=== PATIENT | female | born 1980 | race Caucasian/White ===

== ENCOUNTER 2016-11-29 02:30 | Emergency (ER) | payer OTHER ==
[2016-11-29] MEDS ORDERED: diphenhydrAMINE INJ 50MG/ML VIAL (J1200) As Ordered ONE ×2 (03:30→04:33)
[2016-11-29] MEDS ORDERED: METOCLOPRAMIDE INJ 10MG/2ML VIAL (J2765) As Ordered ONE ×2 (03:30→04:33)
[2016-11-29] MEDS ORDERED: methylPREDNISolone INJ 125 MG/2 ML VIAL (J2930) As Ordered ONE ×2 (03:31→03:38)
[2016-11-29] MEDS ORDERED: KETOROLAC 30 MG/ML VIAL (J1885) As Ordered ONE (03:31)
--- NOTE | 2016-11-29 06:34 | EDDOCDS ---
Physician Documentation [facility] Name: Alisha Bhatt Age: 35 yrs Sex: Female : 1980 Arrival Date: 11/29/2016 Time: 02:30 Bed 15 Private MD: Disposition: 11/29/16 06:08 Discharged to Home/Self Care. Impression: Migraine without aura, not intractable. - Condition is Stable. - Discharge Instructions: Migraine Headache. - Medication Reconciliation, Local Pharmacy Hours, Work Release Form - 2 day form. - Follow up: Private Physician; When: As needed; Reason: Continuance of care. - Problem is an acute exacerbation. - Symptoms have improved. Historical: - Allergies: Aspirin (Hives); - Home Meds: 1. Butalbital Compound 50-325-40 mg Oral cap 1 cap (Last dose: 11/28/2016 22:00) 2. mirena - PMHx: Migraine Headaches; - PSHx: right arm surgery; ; - Social history: Smoking status: Patient states was never smoker of tobacco. No barriers to communication noted, The patient speaks fluent Mosoth[place], Speaks appropriately for age. - Family history: Not pertinent. - : The pt / caregiver states he / she is not on anticoagulants. Home medication list is obtained from the patient, [employer] import data. - Exposure Risk Screening:: None identified. 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 6 in. (167.64 cm); Pain 10/10; 04:52 BP 108 / 63 LA Supine (auto/reg); Pulse 77 MON; Resp 18 S; Temp 98.6(TE); Pulse Ox 99% cln on R/A; Pain 5/10; 06:18 BP 104 / 64 LA Supine (auto/reg); Pulse 76 MON; Resp 18 S; Temp 98.9(TE); Pulse Ox 96% cln on R/A; Pain 4/10; 02:52 Body Mass Index 28.25 (79.38 kg, 167.64 cm) [facility] [place]: 03:24 IV Saline Lock ordered. mm11 03:24 ketorolac 30 mg IVP once ordered. mm11 03:24 Metoclopramide 10 mg IV at 40 mg/hr once over 15 mins ordered. mm11 03:24 diphenhydrAMINE 25 mg IVP once ordered. mm11 03:24 Solu-MEDROL 125 mg IVP once ordered. mm11 03:24 NS 0.9% 1000 ml IV at bolus once ordered. mm11 03:[address] [facility] 04:00 [facility] Payment Agreement was scanned into [employer] and attached to record. [facility] 04:30 Metoclopramide 10 mg IV at 40 mg/hr once over 15 mins ordered. [facility] 04:30 diphenhydrAMINE 25 mg IVP once ordered. mm11 Administered Medications: 03:42 Drug: Solu-MEDROL 125 mg [Solu-Medrol 500 mg intravenous solution (125 mg)] Route: IVP; mgs Site: right antecubital; 03:45 Drug: diphenhydrAMINE 25 mg [diphenhydramine 50 mg/mL injection solution (0.5 mL)] mgs Route: IVP; Site: right antecubital; 03:50 Drug: ketorolac 30 mg [ketorolac 30 mg/mL (1 mL) injection solution (1 mL)] Route: IVP; mgs Site: right antecubital; 03:52 Drug: NS 0.9% 1000 ml [sodium chloride 0.9 % intravenous solution] Route: IV; Rate: mgs bolus; Site: right antecubital; 03:53 Drug: Metoclopramide 10 mg [metoclopramide 5 mg/mL injection solution] Route: IV; Rate: mgs 40 mg/hr; Infused Over: 15 mins; Site: right antecubital; 04:37 Drug: diphenhydrAMINE 25 mg [diphenhydramine 50 mg/mL injection solution (0.5 mL)] mgs Route: IVP; Site: right antecubital; 04:42 Drug: Metoclopramide 10 mg [metoclopramide 5 mg/mL injection solution] Route: IV; Rate: mgs 40 mg/hr; Infused Over: 15 mins; Site: right antecubital; Signatures: Brittany Monroy RN RN km Tony Martin, DO DO mm11 Mandi Ma [facility] Tony Montano,RN RN mgs The chart was reviewed and I authenticate all verbal orders and agree with the evaluation and treatment provided.Attachments: 04:00 [facility] Payment Agreement law MTDD
--- NOTE | 2016-11-29 06:34 | EDDOCDS ---
Nurse's Notes [facility] Name: Alisha Bhatt Age: 35 yrs Sex: Female : 1980 Arrival Date: 11/29/2016 Time: 02:30 Bed 15 Private MD: Diagnosis: Migraine without aura, not intractable Presentation: 11/29 02:49 Presenting complaint: Patient states: Migraine headache started yesterday morning. Was kmg1 relieved by meds but returned last evening and is not responding to treatment. Patient is actively vomiting. Suicide/Homicide risk assessment- the patient denies having any suicidal and/or homicidal ideations and does not present with any other emotional, behavioral or mental health complaints. 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 Transition of care: patient was not received from another setting of care. 02:49 Acuity: HILLARY Level 3 kmg1 02:49 Method Of Arrival: Walkin/Carried/Asstd kmg1 Triage Assessment: 02:52 General: Appears ill, uncomfortable, Behavior is appropriate for age, cooperative. kmg1 Pain: Location: right eye, left eye, right jewish and left jewish Pain currently is 10 out of 10 on a pain scale. Quality of pain is described as sharp, stabbing, throbbing, Also complains of nausea. HIV screening NA for this visit Offered previously. Neurological: Level of Consciousness is awake, alert, Reports dizziness, headache photophobia. GI: Pt is actively vomiting clear fluid, Reports nausea, vomiting. 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 Butalbital Compound 50-325-40 mg Oral cap 1 cap (Last dose: 11/28/2016 22:00) 2. mirena - PMHx: Migraine Headaches; - PSHx: right arm surgery; ; - Social history: Smoking status: Patient states was never smoker of tobacco. No barriers to communication noted, The patient speaks fluent [place], Speaks appropriately for age. - Family history: Not pertinent. - : The pt / caregiver states he / she is not on anticoagulants. Home medication list is obtained from the patient, [employer] import data. - Exposure Risk Screening:: None identified. Screenin:00 Screening information is obtained from the patient. Fall risk: No risks identified. mgs Assistance ADL's: requires no assistance with activities of daily living. Abuse/DV Screen: The patient / caregiver reports he/she is: not in a situation that causes fear, pain or injury. Nutritional screening: No deficits noted. Advance Directives: Currently, there is no health care proxy. There is no active DNR order. home support is adequate. Assessment: 02:59 General: Appears uncomfortable, Behavior is cooperative. Pain: Location: left jewish mgs and right jewish Pain currently is 9 out of 10 on a pain scale. Quality of pain is described as sharp, stabbing. Neurological: Level of Consciousness is awake, alert. Cardiovascular: Capillary refill < 3 seconds Heart tones S1 S2 present. Respiratory: Airway is patent Respiratory effort is even, unlabored, Respiratory pattern is regular, symmetrical. Derm: Skin is pink, warm & dry. 03:54 General: Appears uncomfortable, Behavior is cooperative. Neurological: Level of mgs Consciousness is awake, alert. Cardiovascular: Capillary refill < 3 seconds. Respiratory: Airway is patent Respiratory effort is even, unlabored, Respiratory pattern is regular, symmetrical. Derm: Skin is pink, warm & dry. 04:09 General: Appears uncomfortable, Behavior is cooperative. Pain: Location: left jewish mgs and right jewish Pain currently is 7 out of 10 on a pain scale. Neurological: Level of Consciousness is awake, alert. Cardiovascular: Capillary refill < 3 seconds. Respiratory: Airway is patent Respiratory effort is even, unlabored, Respiratory pattern is regular, symmetrical. Derm: Skin is pink, warm & dry. 04:45 General: Appears uncomfortable, Behavior is cooperative. Pain: Location: left jewish mgs and right jewish Pain currently is 6 out of 10 on a pain scale. Neurological: Level of Consciousness is awake, alert, Oriented to person, place, time. Cardiovascular: Capillary refill < 3 seconds. Respiratory: Airway is patent Respiratory effort is even, unlabored, Respiratory pattern is regular, symmetrical. Derm: Skin is pink, warm & dry. 04:59 General: Appears in no apparent distress, Behavior is cooperative. Pain: Location: left mgs jewish and right jewish Pain currently is 5 out of 10 on a pain scale. Neurological: Level of Consciousness is awake, alert, Oriented to person, place, time. Cardiovascular: Capillary refill < 3 seconds. Respiratory: Airway is patent Respiratory effort is even, unlabored, Respiratory pattern is regular, symmetrical. Derm: Skin is pink, warm & dry. 04:59 Adult Sepsis Screening: The patient does not have new or worsening altered mentation. mgs Patient's respiratory rate is less than 22. Systolic blood pressure is greater than 100. Patient has a qSOFA score of 0- Negative Sepsis Screen. 05:54 General: Appears in no apparent distress, Behavior is appropriate for age, cooperative. mgs Pain: Location: left jewish and right jewish Pain currently is 4 out of 10 on a pain scale. Neurological: Level of Consciousness is awake, alert, Oriented to person, place, time. Cardiovascular: Capillary refill < 3 seconds. Respiratory: Airway is patent Respiratory effort is even, unlabored, Respiratory pattern is regular, symmetrical. Derm: Skin is pink, warm & dry. 06:31 General: Appears in no apparent distress, Behavior is appropriate for age, cooperative. mgs Neurological: Level of Consciousness is awake, alert, Oriented to person, place, time. Cardiovascular: Capillary refill < 3 seconds. Respiratory: Airway is patent Respiratory effort is even, unlabored, Respiratory pattern is regular, symmetrical. Derm: Skin is pink, warm & dry. Vital Signs: 02:52 BP 139 / 94; Pulse 96; Resp 20; Temp 98.7(TE); Weight 79.38 kg (R); Height 5 ft. 6 in[place] [facility] [place] Pain 10/10; 04:52 BP 108 / 63 LA Supine (auto/reg); Pulse 77 MON; Resp 18 S; Temp 98.6(TE); Pulse Ox 99% cln on R/A; Pain 5/10; 06:18 BP 104 / 64 LA Supine (auto/reg); Pulse 76 MON; Resp 18 S; Temp 98.9(TE); Pulse Ox 96% cln on R/A; Pain 4/10; 02:52 Body Mass Index 28.25 (79.38 kg, 167.64 cm) [facility] [place]: 02:52 Log In Time: November 29, 2016 at 02:30. [facility] [place]: 02:31 Patient visited by Leslie Herrera. [facility] 02:31 Patient moved to Waiting gjb 02:51 Triage Initiated kmg1 02:56 Sandy Valdes,RN is Primary Nurse. kmg1 02:56 Patient moved to 11 kmg1 02:57 Patient moved to Nov 03:00 Patient visited by Tony Montano RN. mgs 03:16 Tony Martin DO is Attending Physician. mm11 03:16 Patient visited by Tony Martin DO. mm11 03:23 Patient visited by Tony Martin DO. mm11 03:27 Inserted saline lock: 20 gauge in right antecubital area. mgs 03:54 Patient visited by Tony Montano RN. mgs 04:00 [facility] Payment Agreement was scanned into [employer] and attached to record. slh 04:13 Patient visited by Tony Montano RN. mgs 04:46 Patient visited by Tony Montano RN. mgs 04:52 Patient visited by Marielle Srivastava PCA. cln 04:59 Patient visited by Tony Montano RN. mgs 05:56 Patient visited by Tony Montano RN. mgs 06:19 Patient visited by Marielle Srivastava PCA. cln 06:32 No procedures done that require assistance. mgs 06:33 Patient visited by Tony Montano RN. mgs Administered Medications: 03:42 Drug: Solu-MEDROL 125 mg [Solu-Medrol 500 mg intravenous solution (125 mg)] Route: IVP; mgs Site: right antecubital; 03:45 Drug: diphenhydrAMINE 25 mg [diphenhydramine 50 mg/mL injection solution (0.5 mL)] mgs Route: IVP; Site: right antecubital; 03:50 Drug: ketorolac 30 mg [ketorolac 30 mg/mL (1 mL) injection solution (1 mL)] Route: IVP; mgs Site: right antecubital; 03:52 Drug: NS 0.9% 1000 ml [sodium chloride 0.9 % intravenous solution] Route: IV; Rate: mgs bolus; Site: right antecubital; 03:53 Drug: Metoclopramide 10 mg [metoclopramide 5 mg/mL injection solution] Route: IV; Rate: mgs 40 mg/hr; Infused Over: 15 mins; Site: right antecubital; 04:37 Drug: diphenhydrAMINE 25 mg [diphenhydramine 50 mg/mL injection solution (0.5 mL)] mgs Route: IVP; Site: right antecubital; 04:42 Drug: Metoclopramide 10 mg [metoclopramide 5 mg/mL injection solution] Route: IV; Rate: mgs 40 mg/hr; Infused Over: 15 mins; Site: right antecubital; Order Results: There are currently no results for this order. Outcome: 06:08 Discharge ordered by Provider. mm11 06:32 Discharge Assessment: Patient awake, alert and oriented x 3. No cognitive and/or mgs functional deficits noted. Patient verbalized understanding of disposition instructions. patient administered narcotics - no. The following High Risk Discharge criteria are identified: None. Discharged to home ambulatory, with significant other. Condition: stable. Discharge instructions given to patient, Instructed on discharge instructions, follow up and referral plans. Demonstrated understanding of instructions, Pt was receptive of discharge instructions/ teaching. No special radiology studies were completed. Property sent home with patient. 06:33 Patient left the ED. mgs Signatures: Brittany Monroy, RN RN kmg1 Geena Frye, RN Tony Campos, DO DO mm11 Mandi Ma Matthew,RN RN Leslie Bishop Crystal, CLARICE SUPPLY CATALOGUER cln MTDD
--- NOTE | 2016-12-01 07:34 | EDDOCDS ---
Nurse's Notes [facility] Name: Alisha Bhatt Age: 35 yrs Sex: Female : 1980 Arrival Date: 11/29/2016 Time: 02:30 Bed 15 Private MD: Diagnosis: Migraine without aura, not intractable Presentation: 11/29 02:49 Presenting complaint: Patient states: Migraine headache started yesterday morning. Was kmg1 relieved by meds but returned last evening and is not responding to treatment. Patient is actively vomiting. Suicide/Homicide risk assessment- the patient denies having any suicidal and/or homicidal ideations and does not present with any other emotional, behavioral or mental health complaints. 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 Transition of care: patient was not received from another setting of care. 02:49 Acuity: HILLARY Level 3 kmg1 02:49 Method Of Arrival: Walkin/Carried/Asstd kmg1 Triage Assessment: 02:52 General: Appears ill, uncomfortable, Behavior is appropriate for age, cooperative. kmg1 Pain: Location: right eye, left eye, right jainism and left jainism Pain currently is 10 out of 10 on a pain scale. Quality of pain is described as sharp, stabbing, throbbing, Also complains of nausea. HIV screening NA for this visit Offered previously. Neurological: Level of Consciousness is awake, alert, Reports dizziness, headache photophobia. GI: Pt is actively vomiting clear fluid, Reports nausea, vomiting. 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 Butalbital Compound 50-325-40 mg Oral cap 1 cap (Last dose: 11/28/2016 22:00) 2. mirena - PMHx: Migraine Headaches; - PSHx: right arm surgery; ; - Social history: Smoking status: Patient states was never smoker of tobacco. No barriers to communication noted, The patient speaks fluent [place], Speaks appropriately for age. - Family history: Not pertinent. - : The pt / caregiver states he / she is not on anticoagulants. Home medication list is obtained from the patient, [employer] import data. - Exposure Risk Screening:: None identified. Screenin:00 Screening information is obtained from the patient. Fall risk: No risks identified. mgs Assistance ADL's: requires no assistance with activities of daily living. Abuse/DV Screen: The patient / caregiver reports he/she is: not in a situation that causes fear, pain or injury. Nutritional screening: No deficits noted. Advance Directives: Currently, there is no health care proxy. There is no active DNR order. home support is adequate. Assessment: 02:59 General: Appears uncomfortable, Behavior is cooperative. Pain: Location: left jainism mgs and right jainism Pain currently is 9 out of 10 on a pain scale. Quality of pain is described as sharp, stabbing. Neurological: Level of Consciousness is awake, alert. Cardiovascular: Capillary refill < 3 seconds Heart tones S1 S2 present. Respiratory: Airway is patent Respiratory effort is even, unlabored, Respiratory pattern is regular, symmetrical. Derm: Skin is pink, warm & dry. 03:54 General: Appears uncomfortable, Behavior is cooperative. Neurological: Level of mgs Consciousness is awake, alert. Cardiovascular: Capillary refill < 3 seconds. Respiratory: Airway is patent Respiratory effort is even, unlabored, Respiratory pattern is regular, symmetrical. Derm: Skin is pink, warm & dry. 04:09 General: Appears uncomfortable, Behavior is cooperative. Pain: Location: left jainism mgs and right jainism Pain currently is 7 out of 10 on a pain scale. Neurological: Level of Consciousness is awake, alert. Cardiovascular: Capillary refill < 3 seconds. Respiratory: Airway is patent Respiratory effort is even, unlabored, Respiratory pattern is regular, symmetrical. Derm: Skin is pink, warm & dry. 04:45 General: Appears uncomfortable, Behavior is cooperative. Pain: Location: left jainism mgs and right jainism Pain currently is 6 out of 10 on a pain scale. Neurological: Level of Consciousness is awake, alert, Oriented to person, place, time. Cardiovascular: Capillary refill < 3 seconds. Respiratory: Airway is patent Respiratory effort is even, unlabored, Respiratory pattern is regular, symmetrical. Derm: Skin is pink, warm & dry. 04:59 General: Appears in no apparent distress, Behavior is cooperative. Pain: Location: left mgs jainism and right jainism Pain currently is 5 out of 10 on a pain scale. Neurological: Level of Consciousness is awake, alert, Oriented to person, place, time. Cardiovascular: Capillary refill < 3 seconds. Respiratory: Airway is patent Respiratory effort is even, unlabored, Respiratory pattern is regular, symmetrical. Derm: Skin is pink, warm & dry. 04:59 Adult Sepsis Screening: The patient does not have new or worsening altered mentation. mgs Patient's respiratory rate is less than 22. Systolic blood pressure is greater than 100. Patient has a qSOFA score of 0- Negative Sepsis Screen. 05:54 General: Appears in no apparent distress, Behavior is appropriate for age, cooperative. mgs Pain: Location: left jainism and right jainism Pain currently is 4 out of 10 on a pain scale. Neurological: Level of Consciousness is awake, alert, Oriented to person, place, time. Cardiovascular: Capillary refill < 3 seconds. Respiratory: Airway is patent Respiratory effort is even, unlabored, Respiratory pattern is regular, symmetrical. Derm: Skin is pink, warm & dry. 06:31 General: Appears in no apparent distress, Behavior is appropriate for age, cooperative. mgs Neurological: Level of Consciousness is awake, alert, Oriented to person, place, time. Cardiovascular: Capillary refill < 3 seconds. Respiratory: Airway is patent Respiratory effort is even, unlabored, Respiratory pattern is regular, symmetrical. Derm: Skin is pink, warm & dry. Vital Signs: 02:52 BP 139 / 94; Pulse 96; Resp 20; Temp 98.7(TE); Weight 79.38 kg (R); Height 5 ft. 6 in[place] [facility] [place] Pain 10/10; 04:52 BP 108 / 63 LA Supine (auto/reg); Pulse 77 MON; Resp 18 S; Temp 98.6(TE); Pulse Ox 99% cln on R/A; Pain 5/10; 06:18 BP 104 / 64 LA Supine (auto/reg); Pulse 76 MON; Resp 18 S; Temp 98.9(TE); Pulse Ox 96% cln on R/A; Pain 4/10; 02:52 Body Mass Index 28.25 (79.38 kg, 167.64 cm) [facility] [place]: 02:52 Log In Time: November 29, 2016 at 02:30. [facility] [place] Course: 02:31 Patient visited by Leslie Herrera. [facility] [place] 02:31 Patient moved to Waiting gjb 02:51 Triage Initiated kmg1 02:56 Sandy Valdes,RN is Primary Nurse. kmg1 02:56 Patient moved to 11 kmg1 02:57 Patient moved to Nov 03:00 Patient visited by Tony Montano RN. mgs 03:16 Tony Martin DO is Attending Physician. mm11 03:16 Patient visited by Tony Martin DO. mm11 03:23 Patient visited by Tony Martin DO. mm11 03:27 Inserted saline lock: 20 gauge in right antecubital area. mgs 03:54 Patient visited by Tony Montano RN. mgs 04:00 [facility] Payment Agreement was scanned into [employer] and attached to record. slh 04:13 Patient visited by Tony Montano RN. mgs 04:46 Patient visited by Tony Montano RN. mgs 04:52 Patient visited by Marielle Srivastava PCA. cln 04:59 Patient visited by Tony Montano RN. mgs 05:56 Patient visited by Tony Montano RN. mgs 06:19 Patient visited by Marielle Srivastava PCA. cln 06:32 No procedures done that require assistance. mgs 06:33 Patient visited by Tony Montano RN. mgs 13:10 T-Sheet-- Draft Copy was scanned into [employer] and attached to record. gb Administered Medications: 03:42 Drug: Solu-MEDROL 125 mg [Solu-Medrol 500 mg intravenous solution (125 mg)] Route: IVP; mgs Site: right antecubital; 03:45 Drug: diphenhydrAMINE 25 mg [diphenhydramine 50 mg/mL injection solution (0.5 mL)] mgs Route: IVP; Site: right antecubital; 03:50 Drug: ketorolac 30 mg [ketorolac 30 mg/mL (1 mL) injection solution (1 mL)] Route: IVP; mgs Site: right antecubital; 03:52 Drug: NS 0.9% 1000 ml [sodium chloride 0.9 % intravenous solution] Route: IV; Rate: mgs bolus; Site: right antecubital; 03:53 Drug: Metoclopramide 10 mg [metoclopramide 5 mg/mL injection solution] Route: IV; Rate: mgs 40 mg/hr; Infused Over: 15 mins; Site: right antecubital; 04:37 Drug: diphenhydrAMINE 25 mg [diphenhydramine 50 mg/mL injection solution (0.5 mL)] mgs Route: IVP; Site: right antecubital; 04:42 Drug: Metoclopramide 10 mg [metoclopramide 5 mg/mL injection solution] Route: IV; Rate: mgs 40 mg/hr; Infused Over: 15 mins; Site: right antecubital; Order Results: There are currently no results for this order. Outcome: 06:08 Discharge ordered by Provider. mm11 06:32 Discharge Assessment: Patient awake, alert and oriented x 3. No cognitive and/or mgs functional deficits noted. Patient verbalized understanding of disposition instructions. patient administered narcotics - no. The following High Risk Discharge criteria are identified: None. Discharged to home ambulatory, with significant other. Condition: stable. Discharge instructions given to patient, Instructed on discharge instructions, follow up and referral plans. Demonstrated understanding of instructions, Pt was receptive of discharge instructions/ teaching. No special radiology studies were completed. Property sent home with patient. 06:33 Patient left the ED. mgs Signatures: Brittany Monroy, RN RN kmg1 Geena Frye, RN Acacia [place], Tony Manning, DO mm11 Mandi Ma Matthew,Leslie Thompson RN, Marielle, [employer] EVENTS [employer]DRAISER [employer] cln Chart Complete MTDD
--- NOTE | 2016-12-01 07:34 | EDDOCDS ---
Physician Documentation [facility] Name: Alisha Bhatt Age: 35 yrs Sex: Female : 1980 Arrival Date: 11/29/2016 Time: 02:30 Bed 15 Private MD: Disposition: 11/29/16 06:08 Discharged to Home/Self Care. Impression: Migraine without aura, not intractable. - Condition is Stable. - Discharge Instructions: Migraine Headache. - Medication Reconciliation, Local Pharmacy Hours, Work Release Form - 2 day form. - Follow up: Private Physician; When: As needed; Reason: Continuance of care. - Problem is an acute exacerbation. - Symptoms have improved. Historical: - Allergies: Aspirin (Hives); - Home Meds: 1. Butalbital Compound 50-325-40 mg Oral cap 1 cap (Last dose: 11/28/2016 22:00) 2. mirena - PMHx: Migraine Headaches; - PSHx: right arm surgery; ; - Social history: Smoking status: Patient states was never smoker of tobacco. No barriers to communication noted, The patient speaks fluent Togolese, Speaks appropriately for age. - Family history: Not pertinent. - : The pt / caregiver states he / she is not on anticoagulants. Home medication list is obtained from the patient, [employer] import data. - Exposure Risk Screening:: None identified. 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 6 in. (167.64 cm); Pain 10/10; 04:52 BP 108 / 63 LA Supine (auto/reg); Pulse 77 MON; Resp 18 S; Temp 98.6(TE); Pulse Ox 99% cln on R/A; Pain 5/10; 06:18 BP 104 / 64 LA Supine (auto/reg); Pulse 76 MON; Resp 18 S; Temp 98.9(TE); Pulse Ox 96% cln on R/A; Pain 4/10; 02:52 Body Mass Index 28.25 (79.38 kg, 167.64 cm) [facility] [place]: 03:24 IV Saline Lock ordered. mm11 03:24 ketorolac 30 mg IVP once ordered. mm11 03:24 Metoclopramide 10 mg IV at 40 mg/hr once over 15 mins ordered. mm11 03:24 diphenhydrAMINE 25 mg IVP once ordered. mm11 03:24 Solu-MEDROL 125 mg IVP once ordered. mm11 03:24 NS 0.9% 1000 ml IV at bolus once ordered. mm11 03:55 Financial registration complete. [facility] 04:00 [facility] Payment Agreement was scanned into [employer] and attached to record. [facility] 04:30 Metoclopramide 10 mg IV at 40 mg/hr once over 15 mins ordered. [facility] 04:30 diphenhydrAMINE 25 mg IVP once ordered. [facility] 13:10 T-Sheet-- Draft Copy was scanned into [employer] and attached to record. gb Administered Medications: 03:42 Drug: Solu-MEDROL 125 mg [Solu-Medrol 500 mg intravenous solution (125 mg)] Route: IVP; mgs Site: right antecubital; 03:45 Drug: diphenhydrAMINE 25 mg [diphenhydramine 50 mg/mL injection solution (0.5 mL)] mgs Route: IVP; Site: right antecubital; 03:50 Drug: ketorolac 30 mg [ketorolac 30 mg/mL (1 mL) injection solution (1 mL)] Route: IVP; mgs Site: right antecubital; 03:52 Drug: NS 0.9% 1000 ml [sodium chloride 0.9 % intravenous solution] Route: IV; Rate: mgs bolus; Site: right antecubital; 03:53 Drug: Metoclopramide 10 mg [metoclopramide 5 mg/mL injection solution] Route: IV; Rate: mgs 40 mg/hr; Infused Over: 15 mins; Site: right antecubital; 04:37 Drug: diphenhydrAMINE 25 mg [diphenhydramine 50 mg/mL injection solution (0.5 mL)] mgs Route: IVP; Site: right antecubital; 04:42 Drug: Metoclopramide 10 mg [metoclopramide 5 mg/mL injection solution] Route: IV; Rate: mgs 40 mg/hr; Infused Over: 15 mins; Site: right antecubital; Signatures: Brittany Monroy, RN RN kmg1 Acacia Hooper, Reg Reg gb Tony Martin, DO mm11 Mandi Ma [facility] Tony Montano,RN RN mgs The chart was reviewed and I authenticate all verbal orders and agree with the evaluation and treatment provided.Attachments: 04:00 [facility] Payment Agreement [facility] 13:10 T-Sheet-- Draft Copy Chart Complete MTDD
--- NOTE | 2016-12-01 07:34 | EDDOCDS ---
Physician Documentation [facility] Name: Alisha Bhatt Age: 35 yrs Sex: Female : 1980 Arrival Date: 11/29/2016 Time: 02:30 Bed 15 Private MD: Disposition: 11/29/16 06:08 Discharged to Home/Self Care. Impression: Migraine without aura, not intractable. - Condition is Stable. - Discharge Instructions: Migraine Headache. - Medication Reconciliation, Local Pharmacy Hours, Work Release Form - 2 day form. - Follow up: Private Physician; When: As needed; Reason: Continuance of care. - Problem is an acute exacerbation. - Symptoms have improved. Historical: - Allergies: Aspirin (Hives); - Home Meds: 1. Butalbital Compound 50-325-40 mg Oral cap 1 cap (Last dose: 11/28/2016 22:00) 2. mirena - PMHx: Migraine Headaches; - PSHx: right arm surgery; ; - Social history: Smoking status: Patient states was never smoker of tobacco. No barriers to communication noted, The patient speaks fluent Chilean, Speaks appropriately for age. - Family history: Not pertinent. - : The pt / caregiver states he / she is not on anticoagulants. Home medication list is obtained from the patient, [employer] import data. - Exposure Risk Screening:: None identified. 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 6 in. (167.64 cm); Pain 10/10; 04:52 BP 108 / 63 LA Supine (auto/reg); Pulse 77 MON; Resp 18 S; Temp 98.6(TE); Pulse Ox 99% cln on R/A; Pain 5/10; 06:18 BP 104 / 64 LA Supine (auto/reg); Pulse 76 MON; Resp 18 S; Temp 98.9(TE); Pulse Ox 96% cln on R/A; Pain 4/10; 02:52 Body Mass Index 28.25 (79.38 kg, 167.64 cm) [facility] [place]DM: 03:24 IV Saline Lock ordered. mm11 03:24 ketorolac 30 mg IVP once ordered. mm11 03:24 Metoclopramide 10 mg IV at 40 mg/hr once over 15 mins ordered. mm11 03:24 diphenhydrAMINE 25 mg IVP once ordered. mm11 03:24 Solu-MEDROL 125 mg IVP once ordered. mm11 03:24 NS 0.9% 1000 ml IV at bolus once ordered. mm11 03:55 Financial registration complete. [facility] 04:00 [facility] Payment Agreement was scanned into [employer] and attached to record. [facility] 04:30 Metoclopramide 10 mg IV at 40 mg/hr once over 15 mins ordered. [facility] 04:30 diphenhydrAMINE 25 mg IVP once ordered. [facility] 13:10 T-Sheet-- Draft Copy was scanned into [employer] and attached to record. gb Administered Medications: 03:42 Drug: Solu-MEDROL 125 mg [Solu-Medrol 500 mg intravenous solution (125 mg)] Route: IVP; mgs Site: right antecubital; 03:45 Drug: diphenhydrAMINE 25 mg [diphenhydramine 50 mg/mL injection solution (0.5 mL)] mgs Route: IVP; Site: right antecubital; 03:50 Drug: ketorolac 30 mg [ketorolac 30 mg/mL (1 mL) injection solution (1 mL)] Route: IVP; mgs Site: right antecubital; 03:52 Drug: NS 0.9% 1000 ml [sodium chloride 0.9 % intravenous solution] Route: IV; Rate: mgs bolus; Site: right antecubital; 03:53 Drug: Metoclopramide 10 mg [metoclopramide 5 mg/mL injection solution] Route: IV; Rate: mgs 40 mg/hr; Infused Over: 15 mins; Site: right antecubital; 04:37 Drug: diphenhydrAMINE 25 mg [diphenhydramine 50 mg/mL injection solution (0.5 mL)] mgs Route: IVP; Site: right antecubital; 04:42 Drug: Metoclopramide 10 mg [metoclopramide 5 mg/mL injection solution] Route: IV; Rate: mgs 40 mg/hr; Infused Over: 15 mins; Site: right antecubital; Signatures: Brittany Monroy, RN RN kmg1 Acacia Hooper, Reg Reg gb Tony Martin, DO mm11 Mandi Ma [facility] Tony Montano,RN RN mgs The chart was reviewed and I authenticate all verbal orders and agree with the evaluation and treatment provided.Attachments: 04:00 [facility] Payment Agreement [facility] 13:10 T-Sheet-- Draft Copy Chart Complete MTDD
== END 2016-11-29 06:33 | disposition home or self-care (01) ==
LOC: M ED 02:30
DX: G43.909 Migraine, unspecified, not intractable, without status migrainosus (principal); Z79.899 Other long term (current) drug therapy; Z88.6 Allergy status to analgesic agent
CPT/HCPCS: 96374; 96375; 96376; 99283; J1200; J1885; J2765; J2930

== ENCOUNTER → 2017-04-19 | Outpatient (CLI) | payer OTHER ==
[~2017-04-19] MED LIST: FIOR1CAP PO; IBUP80TA PO; ZOFR4TAB3 PO
--- NOTE | 2017-04-19 13:55 | REP ---
BILATERAL MAMMOGRAM WITH DIAGNOSTIC MAMMOGRAM LEFT BREAST AND LEFT BREAST ULTRASOUND: Bilateral mammography performed in the MLO and CC projections. Reportedly, there is a palpable abnormality in the lower inner left breast, which is marked on the skin with a triangular marker. Additional spot compression views are obtained of that region. There are no prior studies for comparison. There is a family history of breast cancer in two paternal aunts, paternal grandmother and paternal cousin. Moderately dense fibroglandular tissue is seen bilaterally. This limits the sensitivity of the mammogram. No mass is seen bilaterally and there are no suspicious clusters of microcalcifications. Real-time sonographic evaluation of the left breast performed in the lower inner aspect of the left breast. Dense fibroglandular tissue is seen without evidence of a discrete cystic or solid mass. IMPRESSION: ACR 2 benign. No mass or clustered microcalcifications by mammography. There is no mammographic or sonographic evidence of a mass at the site of the reported palpable abnormality in the left breast. A negative mammogram and ultrasound should not deter biopsy if there is a clinically suspicious palpable mass present. Clinical correlation and followup recommended. Recommend followup mammogram in 1 year. BI-RADS/ACR category 2 mammogram. Benign finding(s). Routine annual screening mammography (for women over age 40). This mammogram was interpreted with the aid of an FDA-approved computer-aided detection system. A. Negative x-ray reports should not delay biopsy if a dominant or clinically suspicious mass is present. B. Four to eight percent of cancers are not identified by x-ray. C. Adenosis and dense breasts may obscure an underlying neoplasm. The patient states she/he had a clinical breast exam in December 2016. The patient letter being requested is M2. Signed by Philip Salazar MD 04/21/2017 06:57 P
== END ==
LOC: M RAD 09:40
PROVIDERS: ATTEND Obstetrics & Gynecology
DX: Z12.31 Encounter for screening mammogram for malignant neoplasm of breast (principal); R92.8 Other abnormal and inconclusive findings on diagnostic imaging of breast
CPT/HCPCS: 76642; G0204

== ENCOUNTER 2017-04-22 11:06 | Emergency (ER) | payer OTHER ==
[~2017-04-22] VITALS: Ht 167.6 cm; Wt 79.4 kg
[2017-04-22] MEDS ORDERED: FIOR1CAP PO (11:15)
[2017-04-22] MEDS ORDERED: KETOROLAC 30 MG/ML VIAL (J1885) IV ONE (13:00)
[2017-04-22] MEDS ORDERED: METOCLOPRAMIDE INJ 10MG/2ML VIAL (J2765) IV ONE (13:00)
[2017-04-22] MEDS ORDERED: diphenhydrAMINE INJ 50MG/ML VIAL (J1200) IV STA (13:54)
[2017-04-22] MEDS ORDERED: methylPREDNISolone INJ 125 MG/2 ML VIAL (J2930) IV ONE (14:00)
[2017-04-22] MEDS ORDERED: ACETAMINOPHEN 325 MG TAB PO ONE (14:00)
[2017-04-22] MEDS ORDERED: IBUP80TA PO (14:28)
[2017-04-22] MEDS ORDERED: ZOFR4TAB3 PO (14:28)
[2017-04-22 14:36] VITALS: BP 103/68
== END 2017-04-22 14:43 | disposition home or self-care (01) ==
LOC: M ED 12:25
DX: G43.109 Migraine with aura, not intractable, without status migrainosus (principal); Z88.6 Allergy status to analgesic agent
CPT/HCPCS: 96374; 96375; 99283; J1200; J1885; J2765; J2930

== ENCOUNTER 2017-08-12 07:53 | Emergency (ER) | payer OTHER ==
[~2017-08-12] VITALS: Ht 165.1 cm; Wt 83.1 kg
[2017-08-12] MEDS ORDERED: PATA2.5S (08:01)
[2017-08-12] MEDS ORDERED: BANO25CA (08:01)
[2017-08-12] MEDS ORDERED: diphenhydrAMINE INJ 50MG/ML VIAL (J1200) IV STA (08:42)
[2017-08-12] MEDS ORDERED: METOCLOPRAMIDE INJ 10MG/2ML VIAL (J2765) IV ONE ×2 (08:45→10:00)
[2017-08-12] MEDS ORDERED: KETOROLAC 30 MG/ML VIAL (J1885) IV ONE (08:45)
[2017-08-12] MEDS ORDERED: dexameTHASONE 20 MG/5 ML VIAL (J1100) IV ONE (08:45)
[2017-08-12] MEDS ORDERED: SUMA20SP (11:44)
[2017-08-12 11:46] VITALS: BP 104/61
== END 2017-08-12 11:54 | disposition home or self-care (01) ==
LOC: M ED 07:53
DX: G43.909 Migraine, unspecified, not intractable, without status migrainosus (principal); G43.709 Chronic migraine without aura, not intractable, without status migrainosus; Z87.820 Personal history of traumatic brain injury; Z88.8 Allergy status to other drugs, medicaments and biological substances
CPT/HCPCS: 96374; 96375; 96376; 99283; J1100; J1200; J1885; J2765

== ENCOUNTER 2017-12-12 10:55 | Emergency (ER) | payer OTHER | END 2017-12-12 15:12 | disposition home or self-care (01) | LOC: M ED 10:55 | DX: M25.511 Pain in right shoulder (principal); G89.29 Other chronic pain; M62.81 Muscle weakness (generalized); M54.2 Cervicalgia | CPT/HCPCS: 99283 ==

== ENCOUNTER → 2018-05-15 | Outpatient (CLI) | payer OTHER | LOC: M RAD 10:01 | DX: N63.20 Unspecified lump in the left breast, unspecified quadrant (principal); Z80.3 Family history of malignant neoplasm of breast | CPT/HCPCS: 77066 ==

== ENCOUNTER 2018-06-01 12:41 | Emergency (ER) | payer OTHER ==
[2018-06-01] MEDS: NS 1,000 ML IV (13:25)
[2018-06-01] MEDS: ONDANSETRON 4MG/2ML VIAL (J2405) IV (13:25)
[2018-06-01] MEDS: KETOROLAC 30 MG/ML VIAL (J1885) IV (13:26)
[2018-06-01 13:27] LABS: BASO % 0.2 % (0.0-1.0); EOS # 0.1 10^3/uL (0.0-0.50); EOS % 1.4 % (0.0-3.0); HEMATOCRIT 42.3 % (36.0-47.0); HEMOGLOBIN 14.4 g/dl (12.0-15.5); IMMATURE GRANULOCYTE % 0.2 % (0-3.0); LYMPH # 1.9 10^3/uL (1.5-4.5); LYMPH % 28.8 % (24.0-44.0); MEAN CORPUSCULAR VOLUME 91.2 fl (80.0-96.0); MONO # 0.4 10^3/uL (0.0-0.8); MONO % 6.6 % (0.0-5.0); NEUTROPHILS # 4.1 10^3/uL (1.8-7.7); NEUTROPHILS % 62.8 % (36.0-66.0); PLATELET COUNT, AUTOMATED 254 10^3/uL (150-450); RED BLOOD COUNT 4.64 10^6/uL (4.00-5.40); RED CELL DISTRIBUTION WIDTH 11.9 % (11.5-14.5); WHITE BLOOD COUNT 6.5 10^3/uL (4.0-10.0)
[2018-06-01 13:35] LABS: KETONE, URINE AUTO RFX 1+ mg/dL (NEGATIVE); MUCUS, URINE RFX SMALL (NEGATIVE); NITRITE, URINE AUTO RFX NEGATIVE (NEGATIVE); RBC, URINE AUTO RFX 28 /HPF (0-3); SPECIFIC GRAVITY UR AUTO RFX 1.017 (1.002-1.035); SQUAM EPITHELIAL CELL UR AURFX 2 /HPF (0-6); WBC, URINE AUTO RFX 1 /HPF (0-3)
[2018-06-01 13:55] LABS: ALBUMIN 3.7 GM/DL (3.2-5.2); ALBUMIN/GLOBULIN RATIO 0.86 (1.00-1.93); ALKALINE PHOSPHATASE 89 U/L (45-117); ALT/SGPT 19 U/L (12-78); ANION GAP 9 MEQ/L (8-16); AST/SGOT 11 U/L (7-37); BILIRUBIN,DIRECT 0.1 MG/DL (0.0-0.2); BILIRUBIN,TOTAL 0.5 MG/DL (0.2-1.0); BLOOD UREA NITROGEN 14 MG/DL (7-18); CARBON DIOXIDE LEVEL 25 MEQ/L (21-32); CHLORIDE LEVEL 106 MEQ/L (98-107); CREATININE FOR GFR 0.82 MG/DL (0.55-1.30); GLOMERULAR FILTRATION RATE > 60.0 (>60); GLUCOSE, FASTING 93 MG/DL (70-100); LIPASE 97 U/L (73-393); POTASSIUM SERUM 4.1 MEQ/L (3.5-5.1); SODIUM LEVEL 140 MEQ/L (136-145)
[2018-06-01 14:05] LABS: CONTROL LINE UCG INT CTR LINE PRESENT; URINE PREG TEST NEGATIVE (NEGATIVE)
[2018-06-01] MEDS: MORPHINE 4 MG/ML 1ML VIAL/SYRINGE (J2270) IV (14:10)
[2018-06-01 14:14] LABS: LEUKOCYTE ESTERASE UR AUTO RFX TRACE (NEGATIVE)
[2018-06-01] MEDS: HYDROMORPHONE HCL 0.5 MG/ 0.5 ML SYRINGE (J1170 PER 1) IV (15:07)
[2018-06-01] MEDS: TAMSULOSIN 0.4 MG CAP PO (15:34)
== END 2018-06-01 15:40 | disposition home or self-care (01) ==
LOC: M ED 12:41
DX: N20.1 Calculus of ureter (principal); Z87.820 Personal history of traumatic brain injury; F41.9 Anxiety disorder, unspecified; Z79.899 Other long term (current) drug therapy; Z88.6 Allergy status to analgesic agent; Z91.030 Bee allergy status
CPT/HCPCS: J2270

== ENCOUNTER → 2018-06-14 | Outpatient (REF) | payer OTHER ==
[2018-06-14 13:50] LABS: AMORPHOUS SEDIMENT LARGE (NEGATIVE); APPEARANCE, URINE TURBID (CLEAR); BACTERIA, URINE AUTO NEGATIVE (NEGATIVE); BILIRUBIN, URINE AUTO NEGATIVE (NEGATIVE); BLOOD, URINE BLOOD NEGATIVE (NEGATIVE); COLOR, URINE YELLOW (YELLOW); GLUCOSE, URINE (UA) AUTO NEGATIVE (NEGATIVE); KETONE, URINE AUTO NEGATIVE (NEGATIVE); LEUKOCYTE ESTERASE, URINE AUTO TRACE (NEGATIVE); MUCUS, URINE MODERATE (NEGATIVE); NITRITE, URINE AUTO NEGATIVE (NEGATIVE); PROTEIN, URINE AUTO NEGATIVE (NEGATIVE); RBC, URINE AUTO 0 /HPF (0-3); SPECIFIC GRAVITY URINE AUTO 1.021 (1.002-1.035); SQUAMOUS EPITHELIAL CELL UR AU 0 /HPF (0-6); UROBILINOGEN, URINE AUTO 0.2 mg/dL (0.0-2.0); WBC, URINE AUTO 0 /HPF (0-3)
== END ==
LOC: M LAB REF 13:00
DX: N20.1 Calculus of ureter (principal)

== ENCOUNTER → 2018-10-02 | Outpatient (REF) | payer OTHER | LOC: M SFHCLERA 15:20 | DX: J02.9 Acute pharyngitis, unspecified (principal) ==

== ENCOUNTER 2018-12-22 12:56 | Emergency (ER) | payer OTHER ==
[~2018-12-22] VITALS: Ht 167.6 cm; Wt 80.0 kg
[~2018-12-22 12:56] MED LIST changes: +BANO25CA; +CELE1CAP4 PO; +FLOM0.4C39 PO; +PATA2.5S; +PERC5TAB12 PO; +PROZ20CA11 PO; +SUMA20SP; +TOPA100T12 PO; +TRAZ10TA GT; +VICO7.5T11 PO; +ZOFR4TAB14 PO; -ZOFR4TAB3 PO
[2018-12-22] MEDS ORDERED: EXCEDTAB FT (13:10)
[2018-12-22] MEDS ORDERED: METOCLOPRAMIDE INJ 10MG/2ML VIAL (J2765) IV ONE (13:30)
[2018-12-22] MEDS ORDERED: NS 1,000 ML IV ONE (13:30)
[2018-12-22] MEDS ORDERED: KETOROLAC 30 MG/ML VIAL (J1885) IV ONE (13:30)
[2018-12-22] MEDS ORDERED: diphenhydrAMINE INJ 50MG/ML VIAL (J1200) IV STA (13:30)
[2018-12-22 14:55] VITALS: BP 123/78
== END 2018-12-22 15:12 | disposition home or self-care (01) ==
LOC: M ED 12:56
DX: G43.109 Migraine with aura, not intractable, without status migrainosus (principal); Z87.820 Personal history of traumatic brain injury; Z88.8 Allergy status to other drugs, medicaments and biological substances; Z91.030 Bee allergy status; Z79.899 Other long term (current) drug therapy
CPT/HCPCS: 96374; 96375; 99284; J1200; J1885; J2765

== ENCOUNTER → 2021-01-11 | Outpatient (CLI) | payer SELFPAY ==
[~2021-01-11] MED LIST changes: +EXCEDTAB FT; -TRAZ10TA GT; +TRAZ1TAB12 GT; -VICO7.5T11 PO; +VICO7.5T12 PO
== END ==
LOC: M LABSMTC 10:39
PROVIDERS: ATTEND Pediatrics
DX: Z20.822 Contact with and (suspected) exposure to COVID-19 (principal)
CPT/HCPCS: C9803; U0003

== ENCOUNTER → 2021-01-14 | Outpatient (REF) | payer SELFPAY | LOC: M LABSMTC 13:55 → EDSTATUS 14:00 | PROVIDERS: ATTEND Pediatrics | DX: Z20.822 Contact with and (suspected) exposure to COVID-19 (principal) ==

== ENCOUNTER → 2021-11-30 | Outpatient (REF) ==
[~2021-11-30] MED LIST changes: -BANO25CA; +DIPH-319; -SUMA20SP; +SUMA20SP4
== END ==
LOC: M LABSMTC 11:25
PROVIDERS: ATTEND Pediatrics
DX: Z11.52 Encounter for screening for COVID-19 (principal); Z20.822 Contact with and (suspected) exposure to COVID-19

== ENCOUNTER 2022-01-16 09:43 | Emergency (ER) | payer OTHER ==
[~2022-01-16] VITALS: Ht 167.6 cm; Wt 89.3 kg
[2022-01-16] MEDS ORDERED: BUTA1CAP (09:51)
[2022-01-16] MEDS ORDERED: METOCLOPRAMIDE INJ 10MG/2ML VIAL (J2765 PER 1) IV ONE (11:55)
[2022-01-16] MEDS ORDERED: KETOROLAC 30 MG/ML 1ML VIAL IV ONE (11:55)
[2022-01-16] MEDS ORDERED: NS 1,000 ML IV ONE (11:55)
[2022-01-16 12:41] LABS: BASO % 0.1 % (0.0-1.0); EOS % 0.5 % (0.0-3.0); HEMATOCRIT 44.5 % (36.0-47.0); HEMOGLOBIN 14.7 g/dl (12.0-15.5); LYMPH # 1.9 10^3/uL (1.5-5.0); MEAN CORPUSCULAR HEMOGLOBIN 29.4 pg (27.0-33.0); MONO # 0.5 10^3/uL (0.0-0.8); MONO % 5.2 % (2.0-8.0); NEUTROPHILS # 6.4 10^3/uL (1.5-8.5); NEUTROPHILS % 72.9 % (36.0-66.0); PLATELET COUNT, AUTOMATED 259 10^3/uL (150-450); WHITE BLOOD COUNT 8.8 10^3/uL (4.0-10.0)
[2022-01-16 12:58] LABS: ERYTHROCYTE SEDIMENTATION RATE 17 mm/hr (0-20)
[2022-01-16 13:07] LABS: BLOOD UREA NITROGEN 10 MG/DL (7-18); CALCIUM LEVEL 8.8 MG/DL (8.5-10.1); CARBON DIOXIDE LEVEL 26 MEQ/L (21-32); CHLORIDE LEVEL 109 MEQ/L (98-107); CREATININE FOR GFR 0.74 MG/DL (0.55-1.30); GLOMERULAR FILTRATION RATE > 60.0 (>58); GLUCOSE, FASTING 95 MG/DL (70-100); POTASSIUM SERUM 4.3 MEQ/L (3.5-5.1); SODIUM LEVEL 140 MEQ/L (136-145)
[2022-01-16] MEDS ORDERED: ACETAMINOPHEN 325 MG TAB PO ONE (13:35)
[2022-01-16] MEDS ORDERED: dexameTHASONE 20MG/5ML VIAL (J1100 PER 1MG) IV ONE (13:35)
[2022-01-16] MEDS ORDERED: KETO10TAB PO (14:20)
[2022-01-16 14:31] VITALS: BP 120/76
== END 2022-01-16 14:33 | disposition home or self-care (01) ==
LOC: M ED 09:43
DX: G43.909 Migraine, unspecified, not intractable, without status migrainosus (principal); Z87.820 Personal history of traumatic brain injury; Z88.6 Allergy status to analgesic agent; Z91.030 Bee allergy status; Z79.899 Other long term (current) drug therapy
CPT/HCPCS: 80048; 85025; 85652; 96361; 96374; 96375; 99284; J1100; J1885; J2765

== ENCOUNTER 2022-04-01 21:23 | Emergency (ER) | payer OTHER ==
[~2022-04-01] VITALS: Ht 167.6 cm; Wt 85.0 kg
[~2022-04-01 21:23] MED LIST changes: +ASPI-596 FT; +BUTA1CAP; -EXCEDTAB FT; +KETO10TAB PO
[2022-04-01] MEDS ORDERED: EQ M1TAB4 (21:34)
[2022-04-01] MEDS ORDERED: BENZ200C70 (21:34)
[2022-04-01 22:48] LABS: BASO % 0.1 % (0.0-1.0); EOS % 0.2 % (0.0-3.0); HEMATOCRIT 44.5 % (36.0-47.0); HEMOGLOBIN 15.1 g/dl (12.0-15.5); LYMPH % 9.8 % (24.0-44.0); MEAN CORPUSCULAR HEMOGLOBIN 30.1 pg (27.0-33.0); MEAN CORPUSCULAR HGB CONC 33.9 g/dl (32.0-36.5); MEAN CORPUSCULAR VOLUME 88.6 fl (80.0-96.0); MONO # 0.3 10^3/uL (0.0-0.8); NEUTROPHILS # 9.2 10^3/uL (1.5-8.5); NEUTROPHILS % 86.6 % (36.0-66.0); PLATELET COUNT, AUTOMATED 247 10^3/uL (150-450); RED BLOOD COUNT 5.02 10^6/uL (4.00-5.40); WHITE BLOOD COUNT 10.6 10^3/uL (4.0-10.0)
[2022-04-01 23:13] LABS: CK-MB VALUE MASS < 1.0 NG/ML (<3.6); CPK CREATINE PHOSPHOKINASE 62 U/L (26-192); MB/CK RELATIVE INDEX 1.61 (< OR =4)
[2022-04-01 23:19] LABS: BLOOD UREA NITROGEN 13 MG/DL (7-18); CALCIUM LEVEL 9.2 MG/DL (8.5-10.1); CARBON DIOXIDE LEVEL 26 MEQ/L (21-32); CHLORIDE LEVEL 108 MEQ/L (98-107); CREATININE FOR GFR 0.76 MG/DL (0.55-1.30); GLOMERULAR FILTRATION RATE > 60.0 (>58); GLUCOSE, FASTING 101 MG/DL (70-100); POTASSIUM SERUM 4.1 MEQ/L (3.5-5.1); SODIUM LEVEL 142 MEQ/L (136-145)
[2022-04-02] MEDS ORDERED: NS 1,000 ML IV ONE (01:10)
[2022-04-02] MEDS ORDERED: KETOROLAC 30 MG/ML 1ML VIAL IV ONE ×2 (01:10→02:55)
[2022-04-02] MEDS ORDERED: diphenhydrAMINE 50MG/ML VIAL (J1200) IV ONE ×2 (01:10→02:55)
[2022-04-02] MEDS ORDERED: METOCLOPRAMIDE INJ 10MG/2ML VIAL (J2765 PER 1) IV ONE ×2 (01:10→02:55)
[2022-04-02 05:12] VITALS: BP 120/65
== END 2022-04-02 05:17 | disposition home or self-care (01) ==
LOC: M ED 21:23
DX: G43.909 Migraine, unspecified, not intractable, without status migrainosus (principal); N80.9 Endometriosis, unspecified; Z87.820 Personal history of traumatic brain injury; Z88.8 Allergy status to other drugs, medicaments and biological substances; Z91.030 Bee allergy status
CPT/HCPCS: 71045; 80047; 80048; 82550; 82553; 84443; 84484; 84702; 85025; 87486; 87581; 87633; 87798; 93005; 93041; 94760; 96374; 96375; 96376; 99285; J1200; J1885; J2765

== ENCOUNTER 2024-05-15 22:10 | Emergency (ER) | payer OTHER ==
[~2024-05-15] VITALS: Ht 167.6 cm; Wt 88.5 kg
[~2024-05-15 22:10] MED LIST changes: +BENZ200C70; -DIPH-319; +DIPH-429; +EQ M1TAB4
[2024-05-15 22:55] LABS: BASO % 0.2 % (0.0-1.0); EOS # 0.2 10^3/uL (0.0-0.5); EOS % 1.8 % (0.0-3.0); HEMATOCRIT 43.3 % (36.0-47.0); HEMOGLOBIN 14.8 g/dl (12.0-15.5); LYMPH # 2.6 10^3/uL (1.5-5.0); LYMPH % 30.8 % (24.0-44.0); MEAN CORPUSCULAR HEMOGLOBIN 30.2 pg (27.0-33.0); MEAN CORPUSCULAR HGB CONC 34.2 g/dl (32.0-36.5); MEAN CORPUSCULAR VOLUME 88.4 fl (80.0-96.0); MONO # 0.5 10^3/uL (0.0-0.8); MONO % 6.4 % (2.0-8.0); NEUTROPHILS % 60.6 % (36.0-66.0); PLATELET COUNT, AUTOMATED 257 10^3/uL (150-450); WHITE BLOOD COUNT 8.3 10^3/uL (4.0-10.0)
[2024-05-15 23:22] LABS: ALBUMIN 3.4 G/DL (3.2-5.2); ALKALINE PHOSPHATASE 90 U/L (46-116); ALT/SGPT 15 U/L (7.0-40); AST/SGOT < 8 U/L (<34); BILIRUBIN,TOTAL 0.4 MG/DL (0.3-1.2); BLOOD UREA NITROGEN 18 MG/DL (9-23); CARBON DIOXIDE LEVEL 26 MMOL/L (20-31); CHLORIDE LEVEL 106 MMOL/L (98-107); CK-MB VALUE MASS < 1.0 NG/ML (<3.6); CPK CREATINE PHOSPHOKINASE 63 U/L (34-145); GLOMERULAR FILTRATION RATE > 60.0 (>58); GLUCOSE, FASTING 97 MG/DL (60-100); MB/CK RELATIVE INDEX 1.58 (< OR =4); SODIUM LEVEL 138 MMOL/L (136-145); TOTAL PROTEIN 6.7 G/DL (5.7-8.2)
[2024-05-16] MEDS: MECLIZINE 25 MG TABLET PO ONE (00:25)
[2024-05-16 00:48] LABS: C REACTIVE PROTEIN QUANTITATIV < 0.40 MG/DL (<1.0)
[2024-05-16 00:52] LABS: ERYTHROCYTE SEDIMENTATION RATE 30 mm/hr (0-20)
[2024-05-16 01:17] LABS: HCG, SERUM QUALITATIVE NEGATIVE (NEGATIVE)
[2024-05-16] MEDS: NS 1,000 ML IV ONE (01:23)
[2024-05-16] MEDS: KETOROLAC 30 MG/ML 1ML VIAL IV ONE (01:26)
[2024-05-16] MEDS: PROMETHAZINE 25MG/ML 1ML VIAL IM ONE (01:27)
[2024-05-16] MEDS: SUMAtriptan SUCCINATE 6MG/0.5ML VIAL SC ONE (01:57)
[2024-05-16] MEDS: METOCLOPRAMIDE INJ 10MG/2ML VIAL IV ONE (01:59)
[2024-05-16 02:44] VITALS: BP 131/71; TEMP 96.8; O2SAT 97
[2024-05-16] MEDS ORDERED: KETO10TAB PO (03:21)
[2024-05-16] MEDS ORDERED: ONDA-282 PO (03:21)
[2024-05-16] MEDS ORDERED: MECL-86 PO (03:21)
== END 2024-05-16 03:48 | disposition home or self-care (01) ==
LOC: M ED 22:10
DX: G43.119 Migraine with aura, intractable, without status migrainosus (principal); H81.10 Benign paroxysmal vertigo, unspecified ear; F12.10 Cannabis abuse, uncomplicated; Z91.030 Bee allergy status; Z88.8 Allergy status to other drugs, medicaments and biological substances; Z79.2 Long term (current) use of antibiotics; Z79.899 Other long term (current) drug therapy
CPT/HCPCS: 70450; 80053; 82550; 82553; 84484; 84703; 85025; 85652; 86140; 93005; 96372; 96374; 96375; 99283; J1885; J2550; J2765; J3030

== ENCOUNTER → 2024-06-27 | Outpatient (CLI) | payer OTHER ==
[~2024-06-27] MED LIST changes: +MECL-86 PO; +ONDA-282 PO
== END ==
LOC: M WHC 13:53
PROVIDERS: ATTEND Nurse Practitioner Family
DX: Z12.31 Encounter for screening mammogram for malignant neoplasm of breast (principal); N63.13 Unspecified lump in the right breast, lower outer quadrant
CPT/HCPCS: 76642; 77066; G0279